=== PATIENT | male | born 1985 | race Caucasian/White ===

== ENCOUNTER 2017-05-12 13:16 | Emergency (ER) | payer BC, OTHER ==
[2017-05-12 13:42] VITALS: BP 134/71; PULSE 85; TEMP 98.3; BMI 33.9
--- NOTE | 2017-05-12 14:32 | PDOC ---
History of Present Illness - General Chief Complaint: Injury Stated Complaint: INJURY Time Seen by Provider: 05/12/17 14:28 History Source: Patient Exam Limitations: No Limitations - History of Present Illness Initial Comments: 05/12/17 15:05 All backwards last night landing on outstretched hand Occurred: reports: yesterday Severity: reports: mild, moderate Pain Location: reports: upper extremity (left wrist ) Modifying Factors: improves with: None, cold therapy Loss of Consciousness: no loss of consciousness Associated Symptoms (Fall): denies symptoms Past History - Travel Traveled outside of the country in the last 30 days: No Close contact w/someone who was outside of country & ill: No - Past Medical History Allergies/Adverse Reactions: Allergies Allergy/AdvReac Type Severity Reaction Status Date / Time No Known Allergies Allergy Verified 05/12/17 13:37 Home Medications: Ambulatory Orders Oxycodone HCl/Acetaminophen [Percocet 5-325 mg Tablet] 1 - 2 tab PO Q4H PRN #10 tablet MDD 4 05/12/17 Other medical history: Denies - Immunization History Immunization Up to Date: Yes - Psycho/Social/Smoking Cessation Hx Suicidal Ideation: No Smoking History: Never smoked Have you smoked in the past 12 months: No Information on smoking cessation initiated: No Hx Alcohol Use: No Drug/Substance Use Hx: No Review of Systems - Review of Systems Able to Perform ROS?: Yes Is the patient limited Japanese proficient: Yes Constitutional: Yes: Symptoms Reported, Loss of Appetite HEENTM: No: Symptoms Reported Musculoskeletal: Yes: Symptoms Reported, See HPI, Joint Swelling, Joint Stiffness Integumentary: Yes: Symptoms Reported, See HPI, Bruising All Other Systems: Reviewed and Negative *Physical Exam - Vital Signs Last Vital Signs Temp Pulse Resp BP Pulse Ox 98.3 F 85 17 134/71 98 05/12/17 13:38 05/12/17 13:38 05/12/17 13:38 05/12/17 13:38 05/12/17 13:38 - Physical Exam General Appearance: Yes: Nourished, Appropriately Dressed, Apparent Distress, Mild Distress HEENT: positive: ADELINA, Normal ENT Inspection, Normal Voice, TMs Normal, Pharynx Normal Respiratory/Chest: positive: Lungs Clear Gastrointestinal/Abdominal: positive: Soft Musculoskeletal: positive: Normal Inspection Extremity: positive: Normal Capillary Refill, Normal Inspection. negative: Normal Range of Motion (limited due to ), Tender Integumentary: positive: Normal Color, Swelling, Ecchymosis, Bruising (limted ROM to fingers figures limited secondary to pain and rest) Neurologic: positive: hourly shift II-XII NML intact, Fully Oriented, Alert, Normal Mood/ Affect, Normal Response, Motor Strength 5/5 Progress Note - Progress Note Progress Note: X-ray negative for fractures, wrist sprain, immobilizer and sling placed. Given #10 Percocet tablets for pain relief and instructed follow-up with orthopedist *DC/Admit/Observation/Transfer Diagnosis at time of Disposition: Sprain of left wrist Qualifiers: Encounter type: initial encounter Qualified Code(s): S63.502A - Unspecified sprain of left wrist, initial encounter - Discharge Dispostion Disposition: HOME Condition at time of disposition: Stable Admit: No - Referrals Referrals: Janiya Edge MD [Primary Care Provider] - Brett Henry MD [Staff Physician] - - Patient Instructions Printed Discharge Instructions: DI for Wrist Sprain Additional Instructions: Rest, ice to area on and off for 15 minutes 4-6 times a day Avoid heavy lifting or exercise until pain and swelling is resolved or until further directed Keep area highly elevated to reduce swelling Use splints/James wrap as directed Followup with orthopedist in one to 2 days if not improving, if significantly improved may wait one week for followup with orthopedist May use ibuprofen 2-200 mg tablets every 6 hours as needed for pain May use Percocet for severe pain . - Post Discharge Activity Work/School Note: Back to Work
== END 2017-05-12 15:23 | disposition home or self-care (01) ==
LOC: JERFT 13:16 → JER 13:16 → JERFT 15:23
PROC: 2W3DX1Z Immobilization of Left Lower Arm using Splint (ICD-10-PCS; principal; 2017-05-12)
DX: S63.502A Unspecified sprain of left wrist, initial encounter (principal); W18.39XA Other fall on same level, initial encounter; Y93.89 Activity, other specified; Y92.89 Other specified places as the place of occurrence of the external cause
CPT/HCPCS: 73110-TC-LT; 99281-25